=== PATIENT | female | born 1990 | race Asian ===

== ENCOUNTER 2016-08-29 10:46 | Emergency (ER) | payer OTHER ==
[~2016-08-29] VITALS: Ht 165.1 cm; Wt 74.4 kg
[2016-08-29 13:30] VITALS: BP 122/74
== END 2016-08-29 13:35 | disposition short-term general hospital (02) ==
LOC: ED 10:46
DX: O80 Encounter for full-term uncomplicated delivery (principal); Z11.4 Encounter for screening for human immunodeficiency virus [HIV]
CPT/HCPCS: 36415; 86592; 86703; 86706; 86762; 87529; 96361; 96365; 96368; 99285; G0432; J0690; J2590

== ENCOUNTER 2016-08-29 13:36 | Outpatient (CLI) | payer OTHER | END 2016-08-29 13:54 | disposition short-term general hospital (02) | LOC: AMB 13:36 | DX: O80 Encounter for full-term uncomplicated delivery (principal); Z11.4 Encounter for screening for human immunodeficiency virus [HIV] | CPT/HCPCS: A0425; A0427 ==

== ENCOUNTER 2017-05-05 23:54 | Emergency (ER) | payer OTHER ==
[~2017-05-05] VITALS: Ht 165.1 cm; Wt 69.9 kg
[2017-05-06 00:10] VITALS: BP 109/81; TEMP 98.7
[2017-05-06 01:06] LABS: PLATELET COUNT 325 K/uL (152-353)
[2017-05-06 01:19] LABS: POTASSIUM 3.4 mmol/L (3.6-5.2); SODIUM 136 mmol/L (136-145)
== END 2017-05-06 02:55 | disposition home or self-care (01) ==
LOC: ED 23:54
DX: Z00.8 Encounter for other general examination (principal)
CPT/HCPCS: 36415; 80053; 80307; 80320; 80329; 81000; 81025; 84702; 85027; 99285; G0479

== ENCOUNTER 2018-01-28 08:18 | Emergency (ER) | payer OTHER ==
[2018-01-28 08:25] VITALS: TEMP 97.7
[2018-01-28 09:28] LABS: PLATELET COUNT 318 K/uL (152-353)
[2018-01-28 11:48] VITALS: BP 121/78
== END 2018-01-28 11:46 | disposition home or self-care (01) ==
LOC: ED 08:18
DX: K80.20 Calculus of gallbladder without cholecystitis without obstruction (principal)
CPT/HCPCS: 36415; 82150; 83690; 85027; 99283; Q9963

== ENCOUNTER 2020-05-05 00:41 | Emergency (ER) | payer OTHER ==
[~2020-05-05] VITALS: Ht 165.1 cm; Wt 74.8 kg
[2020-05-05 00:50] VITALS: BP 126/84; TEMP 98.7
== END 2020-05-05 01:10 | disposition home or self-care (01) ==
LOC: ED 00:41
DX: O46.90 Antepartum hemorrhage, unspecified, unspecified trimester (principal)
CPT/HCPCS: 99284

== ENCOUNTER 2020-06-13 13:16 | Outpatient (CLI) | payer OTHER ==
[2020-06-13 13:52] LABS: POTASSIUM 3.5 mmol/L (3.6-5.2)
[2020-06-13 14:39] LABS: PLATELET COUNT 546 K/uL (152-353)
== END 2020-06-13 22:15 | disposition home or self-care (01) ==
LOC: LABW 13:16
PROVIDERS: ATTEND Obstetrics & Gynecology Obstetrics
DX: R17 Unspecified jaundice (principal)
CPT/HCPCS: 36415; 80053; 80074; 82248; 85007; 85027; 87535; G0432

== ENCOUNTER 2020-07-23 10:20 | Outpatient (CLI) | payer OTHER | END 2020-07-23 19:02 | disposition home or self-care (01) | LOC: CT 10:20 | PROVIDERS: ATTEND Obstetrics & Gynecology Obstetrics | DX: R17 Unspecified jaundice (principal) | CPT/HCPCS: Q9963 ==

== ENCOUNTER 2020-11-03 10:54 | Emergency (ER) | payer OTHER ==
[~2020-11-03] VITALS: Ht 165.1 cm; Wt 74.8 kg
[2020-11-03 11:09] VITALS: BP 108/79; TEMP 98.6
[2020-11-03 12:11] LABS: PLATELET COUNT 372 K/uL (152-353)
[2020-11-03 12:19] LABS: POTASSIUM 3.9 mmol/L (3.6-5.2)
== END 2020-11-03 17:08 | disposition home or self-care (01) ==
LOC: ED 10:54
PROVIDERS: Family Medicine
DX: R10.11 Right upper quadrant pain (principal); R44.0 Auditory hallucinations; L98.8 Other specified disorders of the skin and subcutaneous tissue
CPT/HCPCS: 36415; 80053; 81000; 81025; 82150; 83690; 85027; 99285

== ENCOUNTER 2020-12-20 09:53 | Emergency (ER) | payer OTHER | END 2020-12-20 12:15 | disposition home or self-care (01) | LOC: ED 09:53 | DX: R30.0 Dysuria (principal) | CPT/HCPCS: 81000; 81025; 99283 ==

== ENCOUNTER 2021-06-05 15:56 | Emergency (ER) | payer OTHER ==
[~2021-06-05] VITALS: Ht 165.1 cm; Wt 74.8 kg
[2021-06-05 17:53] LABS: PLATELET COUNT 299 K/uL (152-353)
[2021-06-05 18:04] LABS: POTASSIUM 3.9 mmol/L (3.6-5.2)
[2021-06-06 18:55] VITALS: BP 106/58; TEMP 98.6
== END 2021-06-06 18:55 | disposition home or self-care (01) ==
LOC: ED 15:56
PROVIDERS: Emergency Medicine
DX: F20.89 Other schizophrenia (principal); Z3A.23 23 weeks gestation of pregnancy; Z20.822 Contact with and (suspected) exposure to COVID-19
CPT/HCPCS: 80053; 80307; 80320; 80329; 81000; 84702; 85027; 87086; 87088; 87635; 93005; 96360; 96365; 99285; J0696; U0003

== ENCOUNTER 2021-06-23 19:18 | Emergency (ER) | payer OTHER ==
[~2021-06-23] VITALS: Ht 165.1 cm; Wt 68.0 kg
[2021-06-23 20:08] LABS: PLATELET COUNT 270 K/uL (152-353)
[2021-06-23 20:22] LABS: POTASSIUM 3.9 mmol/L (3.6-5.2)
[2021-06-23 20:27] LABS: PARTIAL THROMBOPLASTIN TIME 24.2 SECONDS (24.5-33.6)
[2021-06-23 20:41] VITALS: BP 124/62; TEMP 97.9
== END 2021-06-23 20:41 | disposition home or self-care (01) ==
LOC: ED 19:18
PROVIDERS: Hospitalist
DX: R51.9 Headache, unspecified (principal); H60.8X1 Other otitis externa, right ear; Z3A.23 23 weeks gestation of pregnancy
CPT/HCPCS: 36415; 80048; 80307; 80320; 81000; 85027; 85610; 85730; 99283; J0696